=== PATIENT | female | born 1990 | race Two or more races ===

== ENCOUNTER 2017-07-22 13:39 | Emergency (ER) | payer SELFPAY ==
[~2017-07-22] VITALS: Ht 160 cm; Wt 65.5 kg
[2017-07-22 13:43] VITALS: Ht 160 cm; Wt 65.5 kg
--- NOTE | 2017-07-22 15:53 | RADRPT ---
PROCEDURE: US Pelvis CLINICAL INDICATION: pelvic pain TECHNIQUE: Multiple sonographic images of the pelvis were obtained utilizing a transabdominal and endovaginal technique. The images were reviewed on a PACS workstation. COMPARISON: None. LMP: 07/05/2017 FINDINGS: The uterus measures 8.2 x 3.6 x 4.5 cm. The endometrial echo complex measures 13 mm in thickness. No discrete lesion is seen. The right ovary measures 3.6 x 2.3 x 2.7 cm. The left ovary measures 3.7 x 1.8 x 2.5 cm. There is no rmal vascular flow in both ovaries. There is a thick-walled 1.4 cm cystic lesion with irregular borders and low level internal echoes in the right ovary as well as moderate peripheral vascular flow which may be a ruptured hemorrhagic/co rpus luteal cyst. There is trace pelvic free fluid. IMPRESSION: 1.4 cm complex cystic lesion in the right ovary may be a ruptured hemorrhagic/corpus luteal cyst. Otherwise, unremarkable pelvic ultrasound. RPTAT: EE Physician Malvin Date Time Electronically viewed and signed by Physician Malvin on 07/22/2017 15:52 /
[2017-07-22 16:14] LABS: BASOPHIL # 0.1 10^3/ul (0.0-0.1); BASOPHILS % 0.8 % (0.0-2.0); EOSINOPHILS # 0.1 10^3/ul (0.0-0.5); EOSINOPHILS % 1.1 % (0.0-7.0); HEMATOCRIT 39.8 % (37.0-47.0); HEMOGLOBIN 12.9 g/dl (12.0-16.0); LYMPHOCYTES # 1.7 10^3/ul (0.8-2.9); MEAN CORPUSCULAR HEMOGLOBIN 30.4 pg (29.0-33.0); MEAN CORPUSCULAR HGB CONC 32.4 g/dl (32.0-37.0); MEAN CORPUSCULAR VOLUME 93.9 fl (82.0-101.0); MEAN PLATELET VOLUME 10.3 fl (7.4-10.4); MONOCYTE # 0.5 10^3/ul (0.3-0.9); MONOCYTES % 6.5 % (0.0-11.0); NEUTROPHIL # 5.5 10^3/ul (1.6-7.5); NEUTROPHILS % 69.3 % (39.0-77.0); PLATELET COUNT 229 10^3/UL (140-415); RED BLOOD COUNT 4.24 10^6/ul (4.20-5.40); RED CELL DISTRIBUTION WIDTH 12.5 % (11.5-14.5); WHITE BLOOD COUNT 7.9 10^3/ul (4.8-10.8)
[2017-07-22 16:23] LABS: ADD UMIC YES; UR ASCORBIC ACID NEGATIVE (NEGATIVE); UR BACTERIA FEW /HPF (NONE SEEN); UR BILIRUBIN (Dip) NEGATIVE (NEGATIVE); UR BLOOD (Dip) NEGATIVE (NEGATIVE); UR CLARITY CLEAR (CLEAR); UR COLOR STRAW (YELLOW); UR GLUCOSE (Dip) NEGATIVE (NEGATIVE); UR KETONES (Dip) NEGATIVE (NEGATIVE); UR LEUKOCYTE ESTERASE (Dip) 1+ Leu/ul (NEGATIVE); UR NITRITE (Dip) NEGATIVE (NEGATIVE); UR RBC 1 /HPF (0-5); UR SPECIFIC GRAVITY (Dip) 1.005 (1.003-1.030); UR SQUAMOUS EPITHELIAL CELL FEW /HPF (FEW); UR TOTAL PROTEIN (Dip) NEGATIVE (NEGATIVE); UR UROBILINOGEN (Dip) NEGATIVE (NEGATIVE)
[2017-07-22 16:37] LABS: ALBUMIN 4.4 g/dl (3.3-4.9); ALBUMIN/GLOBULIN RATIO 1.41; BILIRUBIN,INDIRECT 0.3 mg/dl (0-1.1); BILIRUBIN,TOTAL 0.3 mg/dl (0.2-1.3); CALCIUM 9.7 mg/dl (8.4-10.2); CREATININE 0.81 mg/dl (0.44-1.00); POTASSIUM 4.1 mmol/L (3.5-5.1); TOTAL PROTEIN 7.5 g/dl (6.1-8.1)
[2017-07-22] MEDS ORDERED: EPIN0.3P4 INJ (17:13)
[2017-07-22] MEDS ORDERED: NITR-58 PO (17:13)
[2017-07-22] MEDS ORDERED: BEN25 PO (17:13)
--- NOTE | 2017-07-22 17:35 | ERD ---
ER Documentation Chief Complaint Date/Time DATE: 07/22/17 TIME: 17:26 Chief Complaint pelvic pain; painful urination x 2 days; HPI Patient is a 26-year-old female with no past medical history presents emergency department for concerns pelvic pain and dysuria. Patient states she has had intermittent episodes bilateral pelvic pain for the last week. Patient states she developed dysuria 2 days ago. Patient also reports frequency and urgency. Patient denies any hematuria. Patient states her last menstrual period was 2 weeks ago. Patient denies any recent sexual activity. Patient denies any fevers, chills, upper abdominal pain, chest pain, shortness of breath or LOC. Patient states yesterday she was feeling lightheaded. Patient denies any headache, dizziness or blurred vision. ROS All systems reviewed and are negative except as per history of present illness. Medications Home Meds Active Scripts Epinephrine (Epipen 2-Seth) 0.3 Mg/0.3 Ml Pen.injctr, 1 EA INJ ONCE Y for ALLERGIC REACTION, #1 EA Prov:CATHY NERI PA-C 07/22/17 Diphenhydramine Hcl* (Benadryl*) 25 Mg Cap, 25 MG PO Q6, #30 CAP Prov:CATHY NERI PA-C 07/22/17 Nitrofurantoin Monohyd Macrocr* (Macrobid*) 100 Mg Capsr, 100 MG PO BID for 5 Days, CAP Prov:CATHY NERI PA-C 07/22/17 PMhx/Soc Medical and Surgical Hx: pt denies Medical Hx, pt denies Surgical Hx History of Surgery: No Anesthesia Reaction: No Hx Neurological Disorder: No Hx Respiratory Disorders: No Hx Cardiac Disorders: No Hx Psychiatric Problems: No Hx Miscellaneous Medical Probl: No Hx Alcohol Use: No Hx Substance Use: No Hx Tobacco Use: No Smoking Status: Never smoker Physical Exam Vitals Vital Signs Date Time Temp Pulse Resp B/P Pulse Ox O2 Delivery O2 Flow Rate FiO2 07/22/17 13:43 99.0 82 18 125/68 97 Physical Exam GENERAL: Well-developed, well-nourished female. Appears in no acute distress. HEAD: Normocephalic, atraumatic. EYES: Pupils are equally reactive bilaterally. EOMs grossly intact. No conjunctival erythema. ENT: Moist mucous membranes. No uvula deviation. No kissing tonsils. NECK: Supple. No meningismus. Normal range of motion of the neck. LUNG: Clear to auscultation bilaterally. No rhonchi, wheezing, rales or coarse breath sounds. HEART: Regular rate and rhythm. No murmurs, rubs or gallops. ABDOMEN: No scars, ecchymosis or rashes noted. Soft and nondistended. Tender to palpation in the suprapubic region. Positive bowel sounds in all four quadrants. No rebound tenderness, no guarding. (-) McBurney's point tenderness. No CVA tenderness. EXTREMITIES: Equal pulses bilaterally. No peripheral clubbing, cyanosis or edema. No unilateral leg swelling. NEUROLOGIC: Alert and oriented. Moving all four extremities without any difficulty. Normal speech. Steady gait. SKIN: Normal color. Warm and dry. No rashes or lesions. Result Diagram: 07/22/17 1547 07/22/17 1547 Results 24 hrs Laboratory Tests Test 07/22/17 15:47 White Blood Count 7.910^3/ul Red Blood Count 4.2410^6/ul Hemoglobin 12.9g/dl Hematocrit 39.8% Mean Corpuscular Volume 93.9fl Mean Corpuscular Hemoglobin 30.4pg Mean Corpuscular Hemoglobin Concent 32.4g/dl Red Cell Distribution Width 12.5% Platelet Count 28036^3/UL Mean Platelet Volume 10.3fl Neutrophils % 69.3% Lymphocytes % 22.0% Monocytes % 6.5% Eosinophils % 1.1% Basophils % 0.8% Nucleated Red Blood Cells % 0.0/100WBC Neutrophils # 5.510^3/ul Lymphocytes # 1.710^3/ul Monocytes # 0.510^3/ul Eosinophils # 0.110^3/ul Basophils # 0.110^3/ul Nucleated Red Blood Cells # 0.010^3/ul Urine Color STRAW Urine Clarity CLEAR Urine pH 6.0 Urine Specific Vul[place] 1.005 Urine Ketones NEGATIVEmg/dL Urine Nitrite NEGATIVEmg/dL Urine Bilirubin NEGATIVEmg/dL Urine Urobilinogen NEGATIVEmg/dL Urine Leukocyte Esterase 1+Juan Pablo/ul Urine Microscopic RBC 1/HPF Urine Microscopic WBC 11/HPF Urine Squamous Epithelial Cells FEW/HPF Urine Bacteria FEW/HPF Urine Hemoglobin NEGATIVEmg/dL Urine Glucose NEGATIVEmg/dL Urine Total Protein NEGATIVEmg/dl Sodium Level 140mmol/L Potassium Level 4.1mmol/L Chloride Level 103mmol/L Carbon Dioxide Level 28mmol/L Anion Gap 13 Blood Urea Nitrogen 18mg/dl Creatinine 0.81mg/dl Glucose Level 95mg/dl Calcium Level 9.7mg/dl Total Bilirubin 0.3mg/dl Direct Bilirubin 0.00mg/dl Indirect Bilirubin 0.3mg/dl Aspartate Amino Transf (AST/SGOT) 34IU/L Alanine Aminotransferase (ALT/SGPT) 34IU/L Alkaline Phosphatase 65IU/L Total Protein 7.5g/dl Albumin 4.4g/dl Globulin 3.10g/dl Albumin/Globulin Ratio 1.41 Lipase 95U/L Procedures/MDM ED COURSE: The patient was stable throughout ED course. I kept the patient and/or family informed of laboratory and diagnostic imaging results throughout the ED course. DIAGNOSTIC IMAGING: Read by radiologist. Patient: NGHIA LEE : 1990 Age: 26 Sex: F MR #: [id number] DOS: 07/22/17 1459 Ordering MD: CATHY NERI PA-C Location: [facility] Room/Bed: PROCEDURE: US Pelvis CLINICAL INDICATION: pelvic pain TECHNIQUE: Multiple sonographic images of the pelvis were obtained utilizing a transabdominal and endovaginal technique. The images were reviewed on a PACS workstation. COMPARISON: None. LMP: 07/05/2017 FINDINGS: The uterus measures 8.2 x 3.6 x 4.5 cm. The endometrial echo complex measures 13 mm in thickness. No discrete lesion is seen. The right ovary measures 3.6 x 2.3 x 2.7 cm. The left ovary measures 3.7 x 1.8 x 2.5 cm. There is normal vascular flow in both ovaries. There is a thick-walled 1.4 cm cystic lesion with irregular borders and low level internal echoes in the right ovary as well as moderate peripheral vascular flow which may be a ruptured hemorrhagic/corpus luteal cyst. There is trace pelvic free fluid. IMPRESSION: 1.4 cm complex cystic lesion in the right ovary may be a ruptured hemorrhagic/ corpus luteal cyst. Otherwise, unremarkable pelvic ultrasound. RPTAT: EE Physician Malvin Date Time Electronically viewed and signed by Wolf Link Physician on 07/22/2017 15:52 RA/ CC: CATHY NERI PA-C MEDICAL DECISION MAKING: Patient is a 26-year-old female who presents with pelvic pain times week and dysuria 2 days. Vital signs were reviewed. Patient was afebrile. Urine was negative. Urinalysis showed 1+ leukocyte esterase, 11 WBCs. CBC showed no evidence of systemic infection or severe anemia. CMP showed no evidence of electrolyte abnormalities, severe acidosis, alkalosis, renal failure , or liver disease. Lipase showed no evidence of acute pancreatitis. Pelvic US showed 1.4 cm complex cystic lesion in the right ovary may be a ruptured hemorrhagic/corpus luteal cyst. Otherwise, unremarkable pelvic ultrasound. Note, patient stated that she was allergic to all medications except for doxycycline. Patient states she is only taking doxycycline for any infection she has ever had. I explained to the patient after reviewing numerous sources doxycycline is not indicated for UTI. Discussion with patient about her allergies and she said the last time she took any other medications as when she was young. Patient advised patient to try Macrobid for her urinary tract infection. Patient was given strict return precautions for anaphylaxis or allergic reactions. Patient understands return to emergency department immediately for any shortness of breath, nausea, vomiting, lip swelling, tongue swelling, difficulty breathing or loss of consciousness. Patient will also be given a prescription for Benadryl as well as an EpiPen to be used if she has any concerns of the allergic reaction versus anaphylaxis. Patient understands and agrees with this plan. Given these findings, the patient's presentation is most consistent with urinary tract infection and ovarian cyst. I have a much lower clinical concern for pyelonephritis, nephrolithiasis, appendicitis, diverticulitis, constipation , , ectopic , PID, ovarian torsion, or tubo-ovarian abscess. PRESCRIPTIONS: Macrobid, Benadryl, EpiPen DISCHARGE: At this time, patient is stable for discharge and outpatient management. I have instructed the patient to follow-up with his/her primary care physician in 1-2 days. Patient should repeat UA in 2 weeks to check for resolution of urinary tract infection. If symptoms persist, patient may need to see a specialist for further examinations and testing. I have instructed the patient to promptly return to the ER at any time for any new or worsening symptoms including increased pain, fever, nausea, vomiting, urinary changes or weakness. The patient and/or family expressed understanding of and agreement with this plan. All questions were answered. Home care instructions were provided. Disclaimer: Inadvertent spelling and grammatical errors are likely due to EHR/ dictation software use and do not reflect on the overall quality of patient care. Also, please note that the electronic time recorded on this note does not necessarily reflect the actual time of the patient encounter. Departure Diagnosis: Primary Impression: UTI (urinary tract infection) Urinary tract infection type: site unspecified Hematuria presence: without hematuria Qualified Code: N39.0 - Urinary tract infection without hematuria, site unspecified Additional Impression: Hemorrhagic cyst of right ovary Condition: Stable Patient Instructions: What Are Ovarian Cysts?, Understanding Urinary Tract Infections (UTIs) Referrals: [facility] YOU HAVE RECEIVED A MEDICAL SCREENING EXAM AND THE RESULTS INDICATE THAT YOU DO NOT HAVE A CONDITION THAT REQUIRES URGENT TREATMENT IN THE EMERGENCY DEPARTMENT. FURTHER EVALUATION AND TREATMENT OF YOUR CONDITION CAN WAIT UNTIL YOU ARE SEEN IN YOUR DOCTORS OFFICE WITHIN THE NEXT 1-2 DAYS. IT IS YOUR RESPONSIBILITY TO MAKE AN APPOINTMENT FOR FOLOW-UP CARE. IF YOU HAVE A PRIMARY DOCTOR --you should call your primary doctor and schedule an appointment IF YOU DO NOT HAVE A PRIMARY DOCTOR YOU CAN CALL OUR PHYSICIAN REFERRAL HOTLINE AT IF YOU CAN NOT AFFORD TO SEE A PHYSICIAN YOU CAN CHOSE FROM THE FOLLOWING [facility] CLINICS [facility] [address] [facility] [address] [facility]. [facility] [address] [facility] [address] [facility] [address] [facility] [facility]. [address] [facility]. [facility] YOU HAVE RECEIVED A MEDICAL SCREENING EXAM AND THE RESULTS INDICATE THAT YOU DO NOT HAVE A CONDITION THAT REQUIRES URGENT TREATMENT IN THE EMERGENCY DEPARTMENT. FURTHER EVALUATION AND TREATMENT OF YOUR CONDITION CAN WAIT UNTIL YOU ARE SEEN IN YOUR DOCTORS OFFICE WITHIN THE NEXT 1-2 DAYS. IT IS YOUR RESPONSIBILITY TO MAKE AN APPOINTMENT FOR FOLOW-UP CARE. IF YOU HAVE A PRIMARY DOCTOR --you should call your primary doctor and schedule and appointment IF YOU DO NOT HAVE A PRIMARY DOCTOR YOU CAN CALL OUR PHYSICIAN REFERRAL HOTLINE AT . IF YOU CAN NOT AFFORD TO SEE A PHYSICIAN YOU CAN CHOSE FROM THE FOLLOWING [facility] INSTITUTIONS: [facility] [address] [place] [address] [facility] [address] [place] [address] [facility] [address] [place] [address] [employer]PLETION [employer]PER[employer] [address] [facility] [address] [place] [address]ABUS[address] CHA[address] [place] [address] [address] [place] [address] [place] [address] [address] [address] [facility], [address] [address] [facility] [address] [place] [address] [facility] [address] [place] [address] [address] [facility] [address] [address] [facility] [address], [facility] [address] [address] [address] [facility] [address], [facility] [address] [address] [address] [place] [address] Additional Instructions: Call your primary care doctor/OBGYN TOMORROW for an appointment during the next 1-2 days.See the doctor sooner or return here if your condition worsens before your appointment time. CATHY NERI PA-C Jul 22, 2017 17:35
== END 2017-07-22 17:25 | disposition home or self-care (01) ==
LOC: FTE 13:39
DX: N39.0 Urinary tract infection, site not specified (principal); N83.291 Other ovarian cyst, right side
CPT/HCPCS: 36415; 76830; 76856; 80053; 81001; 83690; 85025